=== PATIENT | female | born 1985 | race Hispanic/Latino ===

== ENCOUNTER 2018-08-06 08:47 | Outpatient (CLI) | payer OTHER ==
--- NOTE | 2018-08-06 11:21 | ULT ---
OB ULTRASOUND: HISTORY: Size and dates. FINDINGS: A single live intrauterine gestation is seen with measurements corresponding to an estimated gestatio nal age of 19 weeks 5 days and RICH at 12/26/2018. The estimated weight measures 325 gm or 11 o unces. This corresponds to 7.3% by Hadlock criteria. measurements are as follows: BPD 4.44 cm, 19 weeks 3 days HC 17.42 cm, 20 weeks 0 days AC 14.09 cm, 19 weeks 3 days FL 3.39 cm, 20 weeks 5 days heart rate measures 136 b.p.m. Placenta is posteriorly located without evidence of placenta pr evia. KEVEN measures 14 cm. A 3-vessel cord, cord insertion, kidneys, bladder, stomach, 4-chamber heart, lateral ventricles , cerebellum, spine, lips/nose, upper no active disease lower extremities are visualized. No definit e anomalies are seen. IMPRESSION: Single live intrauterine of 19 weeks 5 days and estimated gestational age and estimated clara e of delivery at 12/26/2018. POS: OFF
== END 2018-08-06 08:48 | disposition home or self-care (01) ==
LOC: NAV ULT 08:47
PROVIDERS: ATTEND Family Medicine
DX: O09.892 Supervision of other high risk pregnancies, second trimester (principal); Z3A.19 19 weeks gestation of pregnancy
CPT/HCPCS: 76805